=== PATIENT | female | born 1950 | race Caucasian/White ===

== ENCOUNTER → 2016-06-05 | Outpatient (CLI) | payer BC ==
--- NOTE | 2016-06-05 11:45 | REPMRS ---
Patient History The patient states she had a clinical breast exam in 05/2016. No known family history of cancer. Taking unspecified hormones for 13 years. Digital Woman Screen Mammo: June 05, 2016 - Exam #: [id number] Bilateral CC and MLO view(s) were taken. Technologist: Citlali Burr, Technologist Prior study comparison: June 03, 2015, digital woman screen mammo performed at [facility]. 2014, digital bilateral screening mammo, performed at [facility]. FINDINGS: The breast tissue is heterogeneously dense. This may lower the sensitivity of mammography. There is a moderate amount of heterogeneously dense fibroglandular tissue which is fairly symmetric. There is no interval development of dominant mass, architectural distortion, or clustered microcalcification typical of malignancy. There has been no change in the appearance of the mammogram from the prior studies. ASSESSMENT: BI-RADS/ACR category 1 mammogram. Negative. Recommendation Routine screening mammogram of both breasts in 1 year (for women over age 40). This mammogram was interpreted with the aid of an FDA-approved computer-aided dectection system. Electronically Signed By: Glenn German MD 06/05/16 1552
== END ==
LOC: M WHC 10:53
PROVIDERS: ATTEND Nurse Practitioner Women's Health
DX: Z12.31 Encounter for screening mammogram for malignant neoplasm of breast (principal); Z92.29 Personal history of other drug therapy

== ENCOUNTER → 2017-07-10 | Outpatient (CLI) | payer BC | LOC: M WHC 10:46 | DX: Z12.31 Encounter for screening mammogram for malignant neoplasm of breast (principal); Z92.29 Personal history of other drug therapy | CPT/HCPCS: 77067 ==

== ENCOUNTER → 2018-07-26 | Outpatient (REF) | payer MEDICARE | LOC: M SFHCWAGY 12:36 | PROVIDERS: ATTEND Nurse Practitioner Women's Health | DX: R30.0 Dysuria (principal) ==

== ENCOUNTER → 2018-07-26 | Outpatient (CLI) | payer MEDICARE ==
--- NOTE | 2018-07-26 12:55 | REPMRS ---
Patient History The patient states she had a clinical breast exam in 07/2018. No known family history of cancer. Taking unspecified hormones for 15 years. 3D TOMOSYNTHESIS WAS PERFORMED. Digital Woman Screen Mammo: July 26, 2018 - Exam #: [id number] Bilateral CC and MLO view(s) were taken. Technologist: Citlali Burr, Technologist Prior study comparison: July 10, 2017, digital woman screen mammo performed at [facility]. June 05, 2016, digital woman screen mammo performed at [facility]. FINDINGS: The breast tissue is extremely dense which could obscure a lesion on mammography. There is no evidence of cancer on this mammogram. No significant changes when compared with prior studies. Assessment: BI-RADS/ACR category 2 mammogram. Benign Findings. Recommendation Routine screening mammogram of both breasts in 1 year (for women over age 40). This mammogram was interpreted with the aid of an FDA-approved computer-aided dectection system. Electronically Signed By: Erik Anderson MD 07/26/18 [id number]
== END ==
LOC: M WHC 10:33
PROVIDERS: ATTEND Nurse Practitioner Women's Health
DX: Z12.31 Encounter for screening mammogram for malignant neoplasm of breast (principal); Z92.29 Personal history of other drug therapy

== ENCOUNTER → 2019-11-07 | Outpatient (CLI) | payer MEDICARE ==
--- NOTE | 2019-11-25 12:05 | REPMRS ---
Patient History The patient states she had a clinical breast exam in 10/2019. No known family history of cancer. Took unspecified hormones for 15 years. Digital Woman Screen Mammo: November 07, 2019 - Exam #: [id number] Bilateral CC and MLO view(s) were taken. Technologist: Citlali Burr, Technologist Prior study comparison: July 26, 2018, bilateral digital woman screen mammo performed at [facility]. July 10, 2017, digital woman screen mammo performed at [facility]. June 05, 2016, digital woman screen mammo performed at [facility]. FINDINGS: The breast tissue is extremely dense which could obscure a lesion on mammography. The Volpara volumetric breast density category is: D. There is a pacemaker power plant projecting over the left axilla on the MLO view. There is an extremely dense symmetrical pattern of residual fibroglandular tissue. There has been no change in the appearance of the mammogram from the previous studies. There is no interval development of dominant mass, archetectural distortion, or grouped microcalcifications suggestive of malignancy. 3-D tomosynthesis shows no additional findings. Assessment: BI-RADS/ACR category 2 mammogram. Benign Findings. Recommendation Routine screening mammogram of both breasts in 1 year (for women over age 40). This patient's Lifetime Breast Cancer RIsk is estimated at 5.2 %. This mammogram was interpreted with the aid of an FDA-approved computer-aided dectection system. Electronically Signed By: Glenn German MD 11/25/19 [id number]
== END ==
LOC: M WHC 16:06
PROVIDERS: ATTEND Nurse Practitioner Women's Health
DX: Z12.31 Encounter for screening mammogram for malignant neoplasm of breast (principal); Z92.29 Personal history of other drug therapy; Z95.0 Presence of cardiac pacemaker

== ENCOUNTER → 2020-11-30 | Outpatient (CLI) | payer MEDICARE ==
--- NOTE | 2020-11-30 10:50 | REPMRS ---
Patient History The patient states she had a clinical breast exam in 2020. No known family history of cancer. Took unspecified hormones for 15 years. No breast complaints today Patient signed the MRS sheet Patient states she had both Moderna vaccines in her left arm. She's not sure of dates but thinks the 2nd dose was given the 1st week of May. Priors on PACS Patient Identification Verified Digital Woman Screen Mammo: November 30, 2020 - Exam #: [id number] Bilateral CC and MLO view(s) were taken. Technologist: Basilia Nicholson, Technologist Prior study comparison: November 07, 2019, bilateral digital woman screen mammo performed at [facility]. July 26, 2018, bilateral digital woman screen mammo performed at [facility]. FINDINGS: The breast tissue is heterogeneously dense. This may lower the sensitivity of mammography. Screening. Digital screening (2D) mammography was performed bilaterally in the CC and MLO projections. Additionally, breast tomosynthesis (3D mammography) was performed bilaterally in the CC and MLO projections. Todays exam was compared to the prior exam/exams. By history, the patient has no complaints of a palpable breast abnormality or other significant breast complaints. The breasts are unchanged in size and shape. Once again, dense heterogenous fibroglandular elements are seen bilaterally in a stable appearing pattern but to such a degree that the sensitivity of the mammogram in detecting cancer is decreased.There are no gianni-soft tissue densities or spiculated masses. There is no internal architectural distortion.Once again, stable benign appearing calcifications are seen. There are no suspicious gianni-calcific clusters. Skin thickening or nipple retraction is not present. IMPRESSION: BI-RADS Category 2- Benign Findings. There is no evidence of malignant alteration of the breasts. Followup examination recommended in one year. The Volpara volumetric breast density category is C, the breasts are heterogenously dense which may obscure small masses. This mammogram was read with the assistance of [employer],an FDA approved computer aided detection system for mammography. The lifetime Tyrer-Cuzick score is 4.6 % Due to the density of the breasts or Tyrer Cuzick score of 20% or greater, MRI/whole breast screening ultrasound is warranted. Negative x-ray reports should not delay surgical consultation if a dominant or clinically suspicious mass is present. Not all breast cancers can be identified by mammography. Therefore, we recommend that you continue to perform regular breast self-examination and physical examination and then promptly contact your physician of any concerns or changes. Adenosis and dense breasts may obscure an underlying neoplasm. Assessment: BI-RADS/ACR category 2 mammogram. Benign Findings. Recommendation Routine screening mammogram of both breasts in 1 year. Electronically Signed By: Gideon Jessica DO 11/30/20 [id number]
== END ==
LOC: M WHC 09:16
PROVIDERS: ATTEND Nurse Practitioner Women's Health
DX: Z12.31 Encounter for screening mammogram for malignant neoplasm of breast (principal); Z92.29 Personal history of other drug therapy; R92.1 Mammographic calcification found on diagnostic imaging of breast

== ENCOUNTER → 2022-03-08 | Outpatient (CLI) | payer MEDICARE | LOC: M WHC 09:50 | PROVIDERS: ATTEND Nurse Practitioner Family | DX: Z12.31 Encounter for screening mammogram for malignant neoplasm of breast (principal) ==

== ENCOUNTER → 2023-03-30 | Outpatient (CLI) | payer MEDICARE | LOC: M WHC 12:29 | PROVIDERS: ATTEND Nurse Practitioner Family | DX: Z12.31 Encounter for screening mammogram for malignant neoplasm of breast (principal) ==